=== PATIENT | male | born 1995 | race Caucasian/White ===

== ENCOUNTER 2024-02-26 14:49 | Emergency (ER) | payer OTHER, SELFPAY ==
[2024-02-26 14:55] VITALS: BP 125/89
[2024-02-26 16:02] VITALS: BP 134/82
[2024-02-26 16:15] LABS: % Basophils 0.1 % (0-2); % Eosinophils 2.1 % (0-6); % Immature Granulocytes 0.1 % (0-0.5); % Lymphocytes 19.2 % (20.5-51.1); % Monocytes 5.4 % (1.7-9.3); % Neutrophils 73.1 % (42.2-75.2); Absolute Eosinophils 0.2 10^3/uL (0-0.7); Absolute Lymphocytes 1.5 10^3/uL (1.2-3.4); Absolute Monocytes 0.4 10^3/uL (0.1-0.6); Absolute Neutrophils 5.8 10^3/uL (1.4-6.5); Hematocrit 43.4 % (39.0-52.0); Hemoglobin 14.9 g/dL (13.0-18.0); Mean Corp Hgb Conc. 34.3 g/dL (33.0-37.0); Mean Corpuscular Hgb 31.7 pg (27.0-31.0); Mean Corpuscular Volume 92.3 fL (80.0-94.0); Mean Platelet Volume 9.2 fL (7.4-10.4); Nucleated Red Blood Cells % 0 % (-); Platelet Count 277 10^3/uL (130-400); Red Cell Dist. Width 11.7 % (11.5-14.5); White Blood Cell Count 7.9 10^3/uL (4.8-10.8)
--- NOTE | 2024-02-26 16:19 | ED.GENMED ---
History of Present Illness
General
Chief Complaint: Chest Pain
Source: patient
Exam Limitations: none
Time Seen by Provider: 02/26/24 15:47
Nursing documentation reviewed up to this point in time: agreed with
Travel History
Have you had any contact with someone who has COVID-19?: No
Do you have any symptoms of coronavirus? Fever > 100 degrees, chills, cough, shortness of breath, sore throat, loss of taste or smell, muscle aches, or headache?: No
History of Present Illness
History of Present Illness:
Patient is a 28-year-old male who presents to the ER for evaluation. He reports around 1:30 PM he was talking to clients when suddenly he felt discomfort in his left arm, he describes this as feeling sore and felt shortness of his left shoulder and
had chest pain. He got very anxious felt sweaty and a little difficulty breathing. He reports he thinks the breathing was because he was nervous. It lasted about 10 minutes and resolved on its own. He is currently asymptomatic. He works as a
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 This did not occur with exertion. He has a history of asthma but no other medical history. He does not smoke. No family history of heart disease, high
cholesterol.
Patient reports he is stressed and was wondering if this was stress. He does try to drink least water day but feels little dehydrated.
Review of Systems
Review of Systems
Allergies reviewed?: Yes
All Other Systems: ROS reviewed and negative except as documented in HPI and ROS
Constitutional: Reports no symptoms; Denies fever, fatigue or chills
EENT: Reports no symptoms
Respiratory: Reports trouble breathing (pt had 'some trouble breathing' during episode resolved on its own )
Cardiac: Reports chest pain (resolved now )
ABD/GI: Reports no symptoms
: Reports no symptoms
Musculoskeletal: Reports no symptoms
Skin: Reports no symptoms
Neurological: Reports no symptoms
Hematologic/Lymphatic: Reports no symptoms
Psychiatric: Reports no symptoms
Phy Exam
General Physical Exam
General Presentation: no apparent distress
General age: appears stated age
General Skin: warm and dry
General Habitus: normal
General Mental: alert
General Hydration: appears well hydrated
Cardiovascular Exam
Cardiovascular Exam: regular rate/rhythm, no murmur and normal peripheral pulses
Pulmonary Exam
Pulmonary Exam: lungs clear and no respiratory distress
Neurological Exam
Neurological Exam: alert and oriented x3
Musculoskeletal Exam
Musculoskeletal Exam: full ROM
Skin Exam
Skin Exam: normal color and warm/dry
Psychiatric Exam
Psychiatric Exam: normal mood/affect
Scores
Heart Score for Chest Pain Patients
STEMI patient?: Not applicable
Course
Orders/Labs/Results
Orders:
Orders
02/26/24 14:49
EKG [Electrocardiogram (*1)] Urgent
Reason for Study: Chest Pain
EKG- Treatment ONCE
02/26/24 16:07
Complete Blood Count/With Diff Urgent
Comprehensive Metabolic Panel Urgent
Creatine Phosphokinase Urgent
Comment: ADD ON
Troponin I Urgent
02/26/24 16:08
Chest [CR Chest - 2 Views ] Urgent
Comment:
Reason For Exam: cp
02/26/24 16:22
0.9% Sodium Chloride 1000 ml [Nss] 1,000 ml IV BOLUS
02/26/24 18:48
Add On- LAB Urgent
Tests Added?: cpk
Abnormal Lab Results
02/26/24
16:07
MCH 31.7 H pg
(27.0-31.0)
Lymphocytes % 19.2 L %
(20.5-51.1)
Creatine Kinase 196 H U/L
(55-170)
02/26/24 16:07
02/26/24 16:07
Vital Signs
Initial and Last Documented VS:
Initial Vital Signs
Temp Pulse Resp BP Pulse Ox
98.4 F 72 18 125/89 98
02/26/24 14:55 02/26/24 14:55 02/26/24 14:55 02/26/24 14:55 02/26/24 14:55
Last Documented Vital Signs
Temp Pulse Resp BP Pulse Ox
98.4 F 71 19 122/83 99
02/26/24 14:55 02/26/24 17:29 02/26/24 17:29 02/26/24 19:00 02/26/24 17:29
MDM/Problems Addressed
Differential Diagnosis Includes:
not limited to : muscle pain, costochondritis
MDM/Problems Addressed:
Patient is a 28-year-old male with no past medical history does not smoke( no family cardiac history ) presented to the ER complaining of chest pain left arm pain felt anxious at the time. He was talking to a client. He reports he is a retail sales merchandiser development
and now and then he does some physical labor but mostly he is managing and he is under a lot of stress at the moment . He reports this happened at 1:30 PM. Symptoms resolved on their own. He reports he was anxious at the time and did have some
difficulty breathing. He has been asymptomatic here in the ER no acute distress. No acute findings on EKG normal cardiac troponin patient is very active works out does some lifting at his job and never has had any chest pain with episodes. I did
check a CPK was 196. He was hydrated and monitored. He had a lunch tray here and he remained asymptomatic. No clear cause of chest pain however no concerning findings and workup will DC with outpatient/evaluation by family doctor.
*Radiology
Radiology exam reviewed: radiology read reviewed
*Pulse Oximetry
Patient hypoxic: no
*EKG
Interpreted by ED Provider?: Yes
Heart Rate: 59
Rate: bradycardiac
Rhythm: sinus
Ischemia: no ischemia
*Critical Care Note
Total Time (30-74mins, 75-104mins- exclusive of procedures): Not Applicable
ED Attending Note
-
Portions of this chart may have been created with voice recognition software.� Occasional wrong word or��sound alike� substitutions may have occurred due to the inherent limitations of voice recognition software.
Discharge Plan
Departure
Patient Disposition: Home (Routine Discharge)
Date of Disposition: 02/26/24
Time of Disposition: 20:07
Patient with high blood pressure during this ER visit?: Yes
Condition: Fair
Covid-19: Not Applicable
Discharge Problem:
Chest pain
Instructions: Chest Pain PCP Follow Up
Referrals:
Chetan Hernandez MD [Family Provider] -
Activity Restrictions/Additional Instructions:
As discussed follow-up with your family doctor in the next several days for reevaluation .
return if any worsening of symptoms
Interventions
Interventions:
*Risk Screen - Suicide Last Done: 02/26/24 14:55
*General Assessment Last Done: 02/26/24 14:55
*Neglect/Abuse Screening Last Done: 02/26/24 14:55
ED- Fall Risk Assessment Last Done: 02/26/24 16:27
*ED COVID-19 Vaccine History Last Done: 02/26/24 14:55
ED- Cardiac Assessment Last Done: 02/26/24 16:27
Discharge Date and Time
Print Language: BENINESE
[2024-02-26 16:37] LABS: ALT (SGPT) 17 U/L (0-50); AST (SGOT) 31 U/L (17-59); Albumin 4.9 g/dl (3.5-5.0); Alkaline Phosphatase 76 U/L (38-126); Blood Urea Nitrogen 15 mg/dl (9-20); Calcium 9.7 mg/dl (8.4-10.2); Carbon Dioxide 25 mmol/L (22-30); Chloride 104 mmol/L (98-107); Glucose 84 mg/dl (70-99); Potassium 4.2 mmol/L (3.5-5.1); Sodium 136 mmol/L (135-145); Total Bilirubin 0.9 mg/dl (0.2-1.3); Total Protein 7.7 g/dl (6.3-8.2); eGFR > 60.00
[2024-02-26 16:38] LABS: Troponin I 0.018 ng/ml
[2024-02-26] MEDS: NSS 1000 IV (16:52)
[2024-02-26 17:00] VITALS: BP 125/74
[2024-02-26 18:34] VITALS: BP 117/82
[2024-02-26 19:00] VITALS: BP 122/83
[2024-02-26 19:39] LABS: Creatine Phosphokinase 196 U/L (55-170)
== END 2024-02-26 20:26 | disposition home or self-care (01) ==
LOC: EMR 14:49
PROVIDERS: Nurse Practitioner; EMERGENCY PHYSICIAN Emergency Medicine; FAMILY PHYSICIAN Internal Medicine
DX: R07.89 Other chest pain (principal)
CPT/HCPCS: 99283; 96360; 71046; 80053; 82550; 84484; 85025; 93005